=== PATIENT | male | born 1955 | race African-American/Black ===

== ENCOUNTER 2018-01-15 14:19 | Emergency (ER) | payer OTHER ==
[2018-01-15 14:44] LABS: ADD MAN DIFF? NO
[2018-01-15 14:46] LABS: BASOPHILS % 0.8 % (0.0-2.0); EOSINOPHILS # 0.3 10^3/ul (0.0-0.5); EOSINOPHILS % 5.2 % (0.0-7.0); HEMATOCRIT 53.8 % (42.0-52.0); HEMOGLOBIN 18.6 g/dl (14.0-18.0); LYMPHOCYTES # 1.1 10^3/ul (0.8-2.9); LYMPHOCYTES % 21.6 % (15.0-51.0); MEAN CORPUSCULAR HEMOGLOBIN 31.6 pg (29.0-33.0); MEAN CORPUSCULAR HGB CONC 34.6 g/dl (32.0-37.0); MEAN CORPUSCULAR VOLUME 91.5 fl (82.0-101.0); MEAN PLATELET VOLUME 9.4 fl (7.4-10.4); MONOCYTE # 0.4 10^3/ul (0.3-0.9); MONOCYTES % 8.7 % (0.0-11.0); NEUTROPHIL # 3.2 10^3/ul (1.6-7.5); NEUTROPHILS % 63.1 % (39.0-77.0); PLATELET COUNT 246 10^3/UL (140-415); RED BLOOD COUNT 5.88 10^6/ul (4.70-6.10); RED CELL DISTRIBUTION WIDTH 13.8 % (11.5-14.5)
[2018-01-15 14:56] LABS: ALANINE AMINOTRANSFERASE 21 IU/L (13-69); ALBUMIN 4.5 g/dl (3.3-4.9); ALBUMIN/GLOBULIN RATIO 1.36; ALKALINE PHOSPHATASE 86 IU/L (42-121); ANION GAP 13 (8-16); ASPARTATE AMINO TRANSFERASE 25 IU/L (15-46); BLOOD UREA NITROGEN 18 mg/dl (7-20); CALCIUM 9.6 mg/dl (8.4-10.2); CARBON DIOXIDE 26 mmol/L (21-31); CHLORIDE 107 mmol/L (97-110); CHOL/HDL RATIO 4.8 RATIO; CHOLESTEROL 220 mg/dl (100-200); HDL CHOLESTEROL 45 mg/dl (30-78); LDL CHOLESTEROL,CALCULATED 149 mg/dl; POTASSIUM 3.7 mmol/L (3.5-5.1); SODIUM 142 mmol/L (135-144); TOTAL PROTEIN 7.8 g/dl (6.1-8.1); TRIGLYCERIDES 128 mg/dl (0-149)
[2018-01-15 14:57] LABS: BILIRUBIN,INDIRECT 0.5 mg/dl (0-1.1); BILIRUBIN,TOTAL 0.5 mg/dl (0.2-1.3); GLUCOSE 131 mg/dl (70-220)
[2018-01-15 15:00] LABS: INR 0.91; PROTIME 12.3 Sec (11.9-14.9)
[2018-01-15 15:01] LABS: PARTIAL THROMBOPLASTIN TIME 25.5 Sec (23.0-35.0)
[2018-01-15 15:07] LABS: TROPONIN-I < 0.012 ng/ml (0.000-0.120)
[2018-01-15 16:01] LABS: B-TYPE NATRIURETIC PEPTIDE 131 PG/ML (0-125)
[2018-01-15 17:23] LABS: HEMOGLOBIN A1C 5.3 % (0-5.9)
== END 2018-01-15 17:07 | disposition home or self-care (01) ==
LOC: E/R 14:19
DX: R20.0 Anesthesia of skin (principal); R20.2 Paresthesia of skin; R40.2142 Coma scale, eyes open, spontaneous, at arrival to emergency department; R40.2252 Coma scale, best verbal response, oriented, at arrival to emergency department; R40.2362 Coma scale, best motor response, obeys commands, at arrival to emergency department; I10 Essential (primary) hypertension; F17.210 Nicotine dependence, cigarettes, uncomplicated
CPT/HCPCS: 36415; 70450; 71045; 80053; 80061; 83036; 83880; 84484; 85025; 85610; 85730; 93005; 99285-25

== ENCOUNTER 2018-01-17 13:41 | Emergency (ER) | payer OTHER ==
[2018-01-17 14:40] LABS: ADD MAN DIFF? NO
[2018-01-17] MEDS: MECLIZINE 12.5 MG TAB PO (14:44)
[2018-01-17] MEDS: ONDANSETRON 4 MG INJ IV (14:44)
[2018-01-17] MEDS: SOD CHLORIDE 0.9% 1,000 ML IV (14:44)
[2018-01-17 14:46] LABS: WHITE BLOOD COUNT 9.8 10^3/ul (4.8-10.8)
[2018-01-17 14:46] LABS: BASOPHILS % 0.3 % (0.0-2.0); HEMATOCRIT 56.7 % (42.0-52.0); HEMOGLOBIN 19.5 g/dl (14.0-18.0); LYMPHOCYTES # 0.9 10^3/ul (0.8-2.9); LYMPHOCYTES % 9.5 % (15.0-51.0); MEAN CORPUSCULAR HGB CONC 34.4 g/dl (32.0-37.0); MEAN CORPUSCULAR VOLUME 93.1 fl (82.0-101.0); MEAN PLATELET VOLUME 9.8 fl (7.4-10.4); MONOCYTE # 0.7 10^3/ul (0.3-0.9); MONOCYTES % 7.1 % (0.0-11.0); NEUTROPHIL # 8.1 10^3/ul (1.6-7.5); NEUTROPHILS % 82.8 % (39.0-77.0); PLATELET COUNT 284 10^3/UL (140-415); RED BLOOD COUNT 6.09 10^6/ul (4.70-6.10); RED CELL DISTRIBUTION WIDTH 14.1 % (11.5-14.5)
[2018-01-17 14:51] LABS: ANION GAP 16 (8-16); BLOOD UREA NITROGEN 25 mg/dl (7-20); CALCIUM 10.1 mg/dl (8.4-10.2); CARBON DIOXIDE 24 mmol/L (21-31); CHLORIDE 106 mmol/L (97-110); GLUCOSE 117 mg/dl (70-220); POTASSIUM 3.5 mmol/L (3.5-5.1); SODIUM 142 mmol/L (135-144)
[2018-01-17 15:03] LABS: TROPONIN-I 0.015 ng/ml (0.000-0.120)
[2018-01-17] MEDS: AMLODIPINE 10 MG TAB PO (17:16)
== END 2018-01-17 17:16 | disposition home or self-care (01) ==
LOC: E/R 13:41
DX: I10 Essential (primary) hypertension (principal); R40.2252 Coma scale, best verbal response, oriented, at arrival to emergency department; R40.2362 Coma scale, best motor response, obeys commands, at arrival to emergency department; R40.2142 Coma scale, eyes open, spontaneous, at arrival to emergency department; R20.2 Paresthesia of skin; R11.0 Nausea; Z87.891 Personal history of nicotine dependence
CPT/HCPCS: 70450; 71045; 80048; 84484; 85025; 93005; 96374; 99285-25